=== PATIENT | male | born 2000 | race Caucasian/White ===

== ENCOUNTER 2021-11-03 19:45 | Emergency (ER) | payer MEDICAID, SELFPAY ==
--- NOTE | ~2021-11-03 | XR_ITS ---
EXAMINATION: XR CERVICAL SPINE CLINICAL INFORMATION: Closed injury. COMPARISON: None TECHNIQUE: 3 views of the cervical spine. FINDINGS: There is reversal of the normal cervical lordosis at the level of C5. Vertebral alignment is otherwise normal without spondylolisthesis. Vertebral body heights are normal. No fractures are evident. Intervertebral disc heights are well-preserved. Facet joints are unremarkable. No osseous neural foraminal encroachment. Prevertebral soft tissues are normal. XR/XR cervical spine 3V IMPRESSION: No acute fracture or acute subluxation identified in the cervical spine.
[2021-11-03 21:04] VITALS: BP 135/82; PULSE 75; RESP 14; TEMP 36.4; O2SAT 97; BMI 22.1
--- NOTE | 2021-11-03 23:58 | ED_ITS ---
HPI - Back Pain/Injury General Chief Complaint: Back Pain/Injury Stated Complaint: spinal injury Time Seen by Provider: 11/03/21 23:58 Source: patient Mode of arrival: ambulatory Limitations: no limitations History of Present Illness HPI Narrative: Patient apparently wrestling with his friend yesterday was accidentally pushed into the wall with head strike no loss of consciousness since then patient complaining of pain in the upper back hurting sensation of both hands and the feet no neuro deficit patient is ambulatory Related Data Previous Rx's Medication Instructions Recorded ibuprofen 600 mg tablet 600 mg PO Q8H PRN pain #30 tabs 11/04/21 Allergies Allergy/AdvReac Type Severity Reaction Status Date / Time No Known Allergies Allergy Verified 11/04/21 00:05 Review of Systems Review of Systems: Yes all other systems are reviewed and are negative [facility] Social History Social History Advance Directives: No Advance Directives Information Provided: No Physical Exam Vital Signs: Vital Signs: Last Vital Signs Temp 97.6 F 11/03/21 21:04 Pulse 75 11/03/21 21:04 Resp 14 11/03/21 21:04 BP 135/82 11/03/21 21:04 Pulse Ox 97 11/03/21 21:04 O2 Del Method 11/03/21 21:04 BMI result Body Mass Index 22.1 Appearance: Alert. Oriented X3. No acute distress. Eyes: PERRLA, No Nystagmus ENT: Pharynx normal. Oral Mucosa moist atraumatic normocephalic Neck: Normal inspection. Neck supple. No midline tenderness painless range of movement CVS: Normal heart rate and rhythm. Pulses normal. Respiratory: No respiratory distress. Equal air entry bilateral, no wheezing/rales/rhonchi Abdomen: Soft and nontender. Bowel sounds are present, no mass palpable, no CVA tenderness Skin: Skin warm and dry. Normal skin color. Normal skin turgor. Extremities: No lower extremity edema. No calf tenderness Neuro: Oriented X 3. No motor deficit. No sensory deficit.No cerebellar signs , cranial nerves II-XII intact MDM - Back Pain/Injury MDM Narrative Medical decision making narrative: Patient with nonspecific neck musculoskeletal pain cervical spine negative will discharge patient home on ibuprofen Discharge Plan Discharge Clinical Impression: Cervical myofascial strain Patient Disposition: Home, Self-Care Instructions: Cervical Strain (ED) Additional Instructions: Tylenol/ibuprofen for pain Follow with PCP if any concerns X-ray of your neck is normal Prescriptions: New ibuprofen 600 mg tablet 600 mg PO Q8H PRN (Reason: pain) Qty: 30 0RF Interventions: ED Discharge Assessment Last Done: 11/04/21 00:52 Discharge Date/Time: 11/04/21 00:56
--- NOTE | 2021-11-04 00:54 | PC.NURSE ---
Initial assessment also performed at time of discharge. Pt. resting comfortably in bed. Pt. is alert and oriented. Pt. asked about x-ray results and wanted to verify the correct pharmacy. Pharmacy was updated to correct pharmacy in [place], [id number].
== END 2021-11-04 00:56 | disposition home or self-care (01) ==
PROVIDERS: Emergency Provider Internal Medicine
DX: S16.1XXA Strain of muscle, fascia and tendon at neck level, initial encounter (principal); W22.09XA Striking against other stationary object, initial encounter; Y93.72 Activity, wrestling; Y92.039 Unspecified place in apartment as the place of occurrence of the external cause; Y99.9 Unspecified external cause status
CPT/HCPCS: 72040; 99282; 99283